=== PATIENT | male | born 1950 | race Caucasian/White ===

== ENCOUNTER → 2016-08-12 | Outpatient (CLI) | payer BC, OTHER ==
--- NOTE | 2016-08-13 17:01 | DI ---
LEFT KNEE, 08/12/2016 10:47 AM: Clinical History: Acute left knee pain. Previous Exam: 06/02/2011. 3 views are submitted. The AP projection is a weightbearing view. The patient is status post total le ft knee replacement and the prosthetic device articulates normally. There is no evidence of loosening of the prosthesis. No joint effusion is present. On the AP projection, bony densities are present al mireille the medial aspect of the medial femoral condyle and the joint space. There are some bony densitie s located on the lateral film posterior to the femoral prosthetic component. These were present on th e prior study and have not changed. They are located more medially and posteriorly than the location typically associated with synovial osteochondromas, and these may actually represent postsurgical het erotopic bone formation. Readin. Status post total left knee replacement. There is no evidence of loosening of the prosthesis and the prosthetic device articulates normally. 2. There are bony densities along the medial and posterior aspect of the knee joint. These were pres ent before and have not changed. 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
== END ==
LOC: ORTHO 10:48
PROVIDERS: ATTEND Physician Assistant
DX: S89.92XA Unspecified injury of left lower leg, initial encounter (principal); M25.562 Pain in left knee; Z96.652 Presence of left artificial knee joint; W00.0XXA Fall on same level due to ice and snow, initial encounter
CPT/HCPCS: 73562

== ENCOUNTER → 2016-10-23 | Outpatient (CLI) | payer BC, OTHER ==
[2016-10-23 16:48] LABS: BILIRUBIN,URINE NEGATIVE (NEG); COLOR,URINE YELLOW; GLUCOSE, URINE (UA) NEGATIVE (NEG); NITRATE,URINE NEGATIVE (NEG); OCCULT BLOOD,URINE NEGATIVE (NEG); PROTEIN,URINE 30 mg/dl (NEG); UROBILINOGEN,URINE 0.2 mg/dL (0.2)
[2016-10-23 16:56] LABS: BASOPHILS # (AUTO) 0.04 10*3/UL; BASOPHILS % (AUTO) 0.4 % (0-1); EOSINOPHILS # (AUTO) 0.17 10*3/UL; EOSINOPHILS % (AUTO) 1.8 % (0-8); HEMATOCRIT 49.2 % (42.0-52.0); LYMPHOCYTES # (AUTO) 3.25 10*3/uL; MEAN CORPUSCULAR HEMOGLOBIN 27.2 PG (27-31); MEAN CORPUSCULAR HGB CONC 34.6 g/dL (33-37); MEAN CORPUSCULAR VOLUME 78.8 FL (80-90); MEAN PLATELET VOLUME 10.5 FL (7.4-12.2); MONOCYTES # (AUTO) 0.88 10*3/UL (0.3-0.8); MONOCYTES % (AUTO) 9.4 % (5-15); NEUTROPHILS # (AUTO) 5.05 10*3/UL; NEUTROPHILS % (AUTO) 53.7 % (50-80); RED BLOOD COUNT 6.24 10^6/uL (4.70-6.10)
[2016-10-23 17:02] LABS: BLOOD UREA NITROGEN 28 mg/dL (7-22); BUN/CREATININE RATIO 23.33 (6-20); CALCIUM 9.5 mg/dL (8.7-10.7); CHOL/HDL RATIO 4.11 RATIO (0-4.0); EST GLOMERULAR FILTRATION > 60 (>60 ml/min/1.73m(2)); HDL CHOLESTEROL 35 mg/dL (40-150); SERUM ALBUMIN 4.7 g/dL (3.5-4.8); SERUM CHOLESTEROL 144 mg/dL (120-200)
[2016-10-23 17:18] LABS: VITAMIN D 25-HYDROXY 35.1 NG/ML (30-100)
[2016-10-23 17:21] LABS: HEMOGLOBIN A1C 6.88 % (4.2-6.0)
[2016-10-23 17:40] LABS: CLARITY,URINE CLEAR (CLEAR); PLATELET MORPHOLOGY COMMENT NORMAL MORPHOLOGY (NORM); RBC MORPHOLOGY COMMENT NORMAL MORPHOLOGY (NORM); URINE SAMPLE TYPE CLEAN CATCH URINE; WBC MORPHOLOGY COMMENT NORMAL MORPHOLOGY (NORM)
[2016-10-23 17:41] LABS: URINE CASTS RARE
== END ==
LOC: MOB LAB 15:57
DX: I10 Essential (primary) hypertension (principal); R73.9 Hyperglycemia, unspecified; E78.2 Mixed hyperlipidemia; N40.0 Benign prostatic hyperplasia without lower urinary tract symptoms; E55.9 Vitamin D deficiency, unspecified; Z12.5 Encounter for screening for malignant neoplasm of prostate
CPT/HCPCS: 36415; 80053; 80061; 81001; 82306; 83036; 84443; 85025; G0103